=== PATIENT | female | born 1970 | race Caucasian/White ===

== ENCOUNTER 2021-05-20 09:37 | Emergency (ER) | payer OTHER ==
[2021-05-20 09:50] VITALS: BP 127/73; PULSE 98; TEMP 97.9; BMI 41.5
[2021-05-20] MEDS ORDERED: VANCOMYCIN 1 GM in D5W (PRE-DOCKED) 1,000 MG/250 ML IVPB ONE (13:00)
== END 2021-05-20 13:43 | disposition left against medical advice (07) ==
LOC: JER 09:37
DX: L02.416 Cutaneous abscess of left lower limb (principal)
CPT/HCPCS: 87070; 87076; 87186; 87205; 99283-25